=== PATIENT | female | born 1935 | race Caucasian/White ===

== ENCOUNTER 2019-05-26 18:04 | Emergency (ER) | payer MEDICARE ==
--- NOTE | 2019-05-26 19:02 | EDM.PDOC ---
ED HPI GENERAL MEDICAL PROBLEM - General Chief Complaint: Head Injury Stated Complaint: FELL Time Seen by Provider: 05/26/19 19:00 Source of Information: Reports: Patient, Family History Limitations: Reports: No Limitations - History of Present Illness INITIAL COMMENTS - FREE TEXT/NARRATIVE: This lady was at home she was in the kitchen she got up out of a chair and she' s not really sure what happened if she lost her balance or what. She said she has kind of a peripheral neuropathy. She fell and she hit her head on a tile floor. She doesn't think she lost consciousness. The family says she is acting normally. She does not take any kind of blood thinners and so forth. Description indicates she hit pretty hard. - Related Data Allergies Allergy/AdvReac Type Severity Reaction Status Date / Time amoxicillin Allergy Airway Verified 05/26/19 18:11 Tightness valicef Allergy Airway Uncoded 05/26/19 18:11 Tightness Home Meds: Home Meds Dextrose [Glucose] 1 tab PO DAILY 05/26/19 [History] Gabapentin [Neurontin] 1 tab PO DAILY 05/26/19 [History] Glimepiride [Amaryl] 1 tab PO DAILY 05/26/19 [History] Levothyroxine [Synthroid] 1 tab PO DAILY 05/26/19 [History] Loperamide [Imodium] 2 mg PO QID PRN 05/26/19 [History] Spironolactone [Aldactone] 1 tab PO DAILY 05/26/19 [History] Past Medical History HEENT History: Reports: Cataract, Hard of Hearing Gastrointestinal History: Reports: Cholelithiasis 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: , 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 Musculoskeletal History: Reports: Osteoarthritis Endocrine/Metabolic History: Reports: Diabetes, Type II, Hypothyroidism Oncologic (Cancer) History: Reports: Colon - Infectious Disease History Infectious Disease History: Reports: Chicken Pox, Measles - Past Surgical History HEENT Surgical History: Reports: Cataract Surgery, Tonsillectomy GI Surgical History: Reports: Appendectomy, Cholecystectomy, Colon, Colonoscopy , Small Bowel Musculoskeletal Surgical History: Reports: Hip Replacement Other Musculoskeletal Surgeries/Procedures:: left hip Social & Family History - Tobacco Use Smoking Status *Q: Never Smoker - Caffeine Use Caffeine Use: Reports: Coffee - Recreational Drug Use Recreational Drug Use: No ED ROS GENERAL - Review of Systems Review Of Systems: See Below Constitutional: Reports: No Symptoms HEENT: Reports: Other (Forehead lack) Respiratory: Reports: No Symptoms Cardiovascular: Reports: No Symptoms Endocrine: Reports: No Symptoms GI/Abdominal: Reports: No Symptoms : Reports: No Symptoms Musculoskeletal: Reports: No Symptoms Skin: Reports: No Symptoms Neurological: Reports: No Symptoms Psychiatric: Reports: No Symptoms ED EXAM, HEAD INJURY - Physical Exam Exam: See Below Exam Limited By: No Limitations General Appearance: Alert, WD/WN, No Apparent Distress Head: Other (1.5 cm vertical laceration to left side of forehead was associated hematoma). 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 Benzoin was applied edges were reapproximated with a single Steri-Strip and Dermabond adhesive was applied resulting in a good cosmetic result. General care instructions were discussed with patient her and daughter Departure - Departure Time of Disposition: 20:11 Disposition: Home, Self-Care 01 Condition: Fair Clinical Impression: Forehead laceration, Minor head injury without loss of consciousness - Discharge Information Referrals: PCP,None [Primary Care Provider] - Forms: ED Department Discharge Additional Instructions: Leave the glue and tape in place for 1 week. Okay to get it wet briefly but do not scrub at it. Do not put tape over the glue. Do not put any kind of ointment over the glue. It will help to put ice over it tonight to help reduce the swelling. You will get a black eye from this and it will last several days and then gradually go away
--- NOTE | 2019-05-26 19:43 | CRLCT ---
INDICATION: Head injury after fall TECHNIQUE: Head CT without contrast. COMPARISON: None FINDINGS: CSF spaces: Within normal limits for age. Brain parenchyma: There are nonspecific low attenuation white matter changes consistent with chronic microvascular disease. No sign of mass, hemorrhage, or midline shift. Skull base and calvarium: The visualized paranasal sinuses and mastoid air cells demonstrate no acute or significant findings. The visualized orbits are grossly unremarkable. No skull fractures. There is intracranial atherosclerosis. There is a left frontal scalp hematoma and laceration. IMPRESSION: 1. No acute intracranial hemorrhage or skull fracture. Left frontal scalp hematoma and laceration. 2. Nonspecific white matter disease, typical of chronic microvascular disease. Please note that all CT scans at this facility use dose modulation, iterative reconstruction, and/or weight-based dosing when appropriate to reduce radiation dose to as low as reasonably achievable. Dictated by Ade Newberry MD @ May 26 2019 7:40PM Signed by Dr. Ade Newberry @ May 26 2019 7:43PM
== END 2019-05-26 20:45 | disposition home or self-care (01) ==
LOC: JP.ED 18:04
DX: S01.81XA Laceration without foreign body of other part of head, initial encounter (principal); E11.9 Type 2 diabetes mellitus without complications; M19.90 Unspecified osteoarthritis, unspecified site; E03.9 Hypothyroidism, unspecified; Z88.1 Allergy status to other antibiotic agents; Z79.84 Long term (current) use of oral hypoglycemic drugs; Z79.899 Other long term (current) drug therapy; W19.XXXA Unspecified fall, initial encounter; W22.8XXA Striking against or struck by other objects, initial encounter
CPT/HCPCS: 12011; 70450; 99283; 99283-25